=== PATIENT | female | born 1965 | race Caucasian/White ===

== ENCOUNTER 2019-09-08 07:21 | Day surgery (SDC) | payer BC, MEDICAID ==
[~2019-09-08 07:21] MED LIST: LACTATED RINGERS 1,000 ML ONE; LIDOCAINE 1% 10 ML VIAL INJ ONE; PROPOFOL 200 MG/20 ML VIAL IV ONE
--- NOTE | 2019-09-08 09:02 | OP ---
DATE OF PROCEDURE: 09/08/19 PREOPERATIVE DIAGNOSIS: 1. Screening colonoscopy. POSTOPERATIVE DIAGNOSIS: 1. Normal colon. PROCEDURE: 1. Colonoscopy. SURGEON: Lawrence Beverly MD ANESTHESIA: General. PLAN: Followup in 10 years. INDICATION: As stated. PROCEDURE: Complete informed consent was obtained. The patient was brought to the suite. General anesthesia was induced in the lateral position when she was comfortable. Digital rectal exam was done and was normal but for a few small anal tags. The colonoscope was inserted. It was then passed with minimal difficulty all the way to the cecum, identifying the ileocecal valve. Upon withdrawal, there was an adequate prep. We did require some irrigation to clear to see all the jha, but an adequate exam and no polyps were seen. There was only a small handful of tiny diverticula. The patient tolerated the procedure and was taken to Recovery to be discharged. Followup 10 years. #[id number] MTDD
[2019-09-08 09:55] VITALS: BP 148/85; TEMP 96.7; O2SAT 99
== END 2019-09-08 09:35 | disposition home or self-care (01) ==
LOC: AMB 07:21
PROVIDERS: ATTEND Surgery
DX: Z12.11 Encounter for screening for malignant neoplasm of colon (principal); K57.30 Diverticulosis of large intestine without perforation or abscess without bleeding; K64.4 Residual hemorrhoidal skin tags; E11.9 Type 2 diabetes mellitus without complications; I10 Essential (primary) hypertension; E78.00 Pure hypercholesterolemia, unspecified; Z90.710 Acquired absence of both cervix and uterus; Z88.0 Allergy status to penicillin; Z88.2 Allergy status to sulfonamides; Z79.899 Other long term (current) drug therapy
CPT/HCPCS: 00812; 36416; 45378; 82948; J3490; J7120